=== PATIENT | male | born 1990 | race Caucasian/White ===

== ENCOUNTER 2019-05-27 01:44 | Emergency (ER) | payer MEDICAID ==
[~2019-05-27] VITALS: Ht 167.6 cm; Wt 104.3 kg
[2019-05-27 01:49] VITALS: Ht 167.6 cm; Wt 104.3 kg
[2019-05-27 03:11] VITALS: BP 133/92
== END 2019-05-27 03:11 | disposition home or self-care (01) ==
LOC: EDSEX 01:44 → ED 01:44
DX: S71.102A Unspecified open wound, left thigh, initial encounter (principal); W22.8XXA Striking against or struck by other objects, initial encounter; Y93.89 Activity, other specified; Y92.89 Other specified places as the place of occurrence of the external cause; Y99.8 Other external cause status
CPT/HCPCS: 90715; J2001